=== PATIENT | female | born 2000 | race Two or more races ===

== ENCOUNTER 2020-04-30 19:40 | Emergency (ER) | payer OTHER ==
--- NOTE | 2020-04-30 20:16 | ER Document Report ---
ED Medical Screen (RME) - General Chief Complaint: Dizziness Stated Complaint: LIGHT HEADNESS/ABDOMINAL TENDERNESS Time Seen by Provider: 04/30/20 20:04 Notes: Patient is a G1, P0 27-week female who presents to the emergency department with a chief complaint of dizziness that started around 1830. She was eating at that time. Patient states that she feels normal now. Patient called the on-call [employer] nurse at [facility] and they referred her to the emergency department. Patient states that since she had the episode, she not felt the fetus move as much. Denies any abdominal cramping. Exam: Noticeably 27 weeks . I have greeted and performed a rapid initial assessment of this patient. A comprehensive ED assessment and evaluation of the patient, analysis of test results and completion of medical decision making process will be conducted by an additional ED providers. - Related Data Allergies/Adverse Reactions: No Known Allergies Allergy (Unverified 04/30/20 20:05) Home Medications: vitamin Past Medical History - Social History Chew tobacco use (# tins/day): No Frequency of alcohol use: None Drug Abuse: None Physical Exam - Vital signs Vitals: Temp Pulse Resp BP Pulse Ox 98.7 F 103 H 16 123/74 98 04/30/20 19:44 04/30/20 19:44 04/30/20 19:44 04/30/20 19:44 04/30/20 19:44 Course - Vital Signs Vital signs: Temp Pulse Resp BP Pulse Ox 98.7 F 103 H 16 123/74 98 04/30/20 19:59 04/30/20 19:44 04/30/20 19:44 04/30/20 19:44 04/30/20 19:44
[2020-04-30 21:01] LABS: ABSOLUTE LYMPHOCYTES (AUTO) 1.1 10^3/uL (0.5-4.7); ABSOLUTE MONOCYTES (AUTO) 0.6 10^3/uL (0.1-1.4); ABSOLUTE NEUT (AUTO) 6.3 10^3/uL (1.7-8.2); BASOPHILS % (AUTO) 0.4 % (0-2); EOSINOPHILS % (AUTO) 0.2 % (0-6); HEMATOCRIT 34.6 % (36.0-47.0); HEMOGLOBIN 12.5 g/dL (12.0-15.5); LYMPHOCYTES % (AUTO) 13.6 % (13-45); MEAN CORPUSCULAR HEMOGLOBIN 33.2 pg (27.0-33.4); MEAN CORPUSCULAR VOLUME 92 fl (80-97); MONOCYTES % (AUTO) 7.6 % (3-13); PLATELET COUNT 211 10^3/uL (150-450); RED BLOOD COUNT 3.76 10^6/uL (3.72-5.28); RED CELL DISTRIBUTION WIDTH 12.6 % (11.5-14.0); SEGMENTED NEUTROPHILS % (AUTO) 78.2 % (42-78); TOTAL CELLS COUNTED % (AUTO) 100 %; WHITE BLOOD COUNT 8.1 10^3/uL (4.0-10.5)
[2020-04-30 21:04] LABS: APPEARANCE,URINE CLEAR; BILIRUBIN,URINE NEGATIVE (NEGATIVE); COLOR,URINE YELLOW; GLUCOSE, URINE NEGATIVE (NEGATIVE); KETONES,URINE TRACE mg/dL (NEGATIVE); LEUKOCYTE ESTERASE,URINE NEGATIVE (NEGATIVE); NITRITE,URINE NEGATIVE (NEGATIVE); PROTEIN,URINE NEGATIVE (NEGATIVE); URINE SPECIFIC GRAVITY 1.011; UROBILINOGEN,URINE NEGATIVE mg/dL (<2.0)
[2020-04-30 21:08] LABS: ALBUMIN 3.7 g/dL (3.5-5.0); ALKALINE PHOSPHATASE 80 U/L (38-126); ANION GAP 8 (5-19); ASPARTATE AMINO TRANSFERASE 28 U/L (14-36); BILIRUBIN,TOTAL 0.4 mg/dL (0.2-1.3); BLOOD UREA NITROGEN 10 mg/dL (7-20); CALCIUM 9.1 mg/dL (8.4-10.2); CARBON DIOXIDE 24 mmol/L (22-30); CHLORIDE 102 mmol/L (98-107); GLUCOSE 91 mg/dL (75-110); POTASSIUM 3.6 mmol/L (3.6-5.0); TOTAL PROTEIN 6.7 g/dL (6.3-8.2)
--- NOTE | 2020-04-30 21:59 | RADIOLOGY REPORT (SQ) ---
EXAM DESCRIPTION: US FOLLOW UP COMPLETED DATE/TME: 04/30/2020 20:22 CLINICAL HISTORY: 19 years, Female, dizziness; decreased movement COMPARISON: None. TECHNIQUE: LIMITATIONS: None. FINDINGS: There is a live 27 week 3 day +/- 2 week IUP in vertex presentation. cardiac activity was measured at 158 bpm. movement was visualized during the examination. The placenta is fundal in location, with no evidence of abruption or previa. There is a normal amount of amniotic fluid. The amniotic fluid index is 15.3 cm. The estimated weight is 1055 g. The cervix measures 3.3 cm in length and is closed. IMPRESSION: Unremarkable IUP. copyright 2010 [employer]- All Rights Reserved
--- NOTE | 2020-05-01 00:55 | ER Document Report ---
ED General - General Chief Complaint: Dizziness Stated Complaint: LIGHT HEADNESS/ABDOMINAL TENDERNESS Time Seen by Provider: 04/30/20 20:04 Mode of Arrival: Ambulatory Information source: Patient Notes: Place notes Patient is a G1, P0 27-week female who presents to the emergency depart ment with a chief complaint of dizziness that started around 1830. She was eating at that time. Patient states that she feels normal now. Patient called the on-call [employer] nurse at [facility] and they referred her to the emergency department. Patient states that since she had the episode, she not felt the fetus move as much. Denies any abdominal cramping. my notes 19-year-old [place] female arrives with acute onset of dizziness and soreness in her stomach and felt like she could not breathe for around 4 minutes with some apprehension. This is never happened before but denied any hemoptysis or any chest pain or diarrhea constipation fever chills sore throat nuchal rigidity or trauma or anxiety attack. This is her first G1, P0 [place] Ultrasound revealed 27 weeks which is in concurrence with her last menstrual period. Ultrasound revealed IUP vertex presentation no previa closed cervix and normal fluid patient wants to go home. It is now 0 115 - Related Data Allergies/Adverse Reactions: No Known Allergies Allergy (Unverified 04/30/20 20:05) Home Medications: vitamin Past Medical History - General Information source: Patient - Social History Smoking Status: Never Smoker Cigarette use (# per day): No Chew tobacco use (# tins/day): No Smoking Education Provided: No Frequency of alcohol use: None Drug Abuse: None Lives with: Family Family History: Reviewed & Not Pertinent Patient has suicidal ideation: No Patient has homicidal ideation: No Review of Systems - Review of Systems Constitutional: No symptoms reported EENT: No symptoms reported Cardiovascular: See HPI, Dizziness Respiratory: No symptoms reported Gastrointestinal: No symptoms reported Genitourinary: No symptoms reported Female Genitourinary: No symptoms reported Musculoskeletal: No symptoms reported Skin: No symptoms reported Hematologic/Lymphatic: No symptoms reported Neurological/Psychological: No symptoms reported Physical Exam - Vital signs Vitals: Temp Pulse Resp BP Pulse Ox 98.7 F 103 H 16 123/74 98 04/30/20 19:44 04/30/20 19:44 04/30/20 19:44 04/30/20 19:44 04/30/20 19:44 Interpretation: Tachycardic - General General appearance: Appears well - HEENT Head: Normocephalic, Atraumatic Eyes: Normal Pupils: PERRL - Respiratory Respiratory status: No respiratory distress Chest status: Nontender Breath sounds: Normal Chest palpation: Normal - Cardiovascular Rhythm: Regular - Abdominal Inspection: Gravid female Distension: Distended Bowel sounds: Normal Tenderness: Nontender Organomegaly: No organomegaly - Rectal Stool: Other - deferred - Genitourinary Speculum exam: Other - deferred - Back Back: Normal - Extremities General upper extremity: Normal inspection, Nontender, Normal color, Normal ROM, Normal temperature General lower extremity: Normal inspection, Nontender, Normal color, Normal ROM, Normal temperature, Normal weight bearing. No: Damien's sign - Neurological Neuro grossly intact: Yes Cognition: Normal Orientation: AAOx4 Madi Coma Scale Eye Opening: Spontaneous Madi Coma Scale Verbal: Oriented Madi Coma Scale Motor: Obeys Commands Orgas Coma Scale Total: 15 Speech: Normal Motor strength normal: LUE, RUE, LLE, RLE Sensory: Normal - Psychological Associated symptoms: Normal affect - Skin Skin Temperature: Warm Skin Moisture: Dry Course - Vital Signs Vital signs: Temp Pulse Resp BP Pulse Ox 98.6 F 81 20 107/71 98 05/01/20 01:35 05/01/20 01:35 05/01/20 01:35 05/01/20 01:35 05/01/20 01:35 - Laboratory Result Diagrams: 04/30/20 20:24 04/30/20 20:24 Laboratory results interpreted by me: 04/30/20 04/30/20 04/30/20 20:17 20:24 20:24 Hct 34.6 L Seg Neutrophils % 78.2 H Sodium 133.8 L Beta HCG, Quant 00730.00 H Urine Ketones TRACE H Urine Ascorbic Acid 40 H Critical Care Note - Critical Care Note Total time excluding time spent on procedures (mins): 60 Comments: I advised patient of her ultrasound reports and she now feels much improved and would like to go home. She requests no further work-up. Discharge - Discharge Clinical Impression: Qualifiers: Weeks of gestation: 27 weeks Qualified Code(s): Z3A.27 - 27 weeks gestation of Condition: Good Disposition: HOME, SELF-CARE Additional Instructions: Follow-up with OB doctor this week return to ER as needed return if symptoms of shortness of breath or tachycardia return. Also return if you have any vaginal discharge or leakage as an "water breakage" Forms: Return to Work
[2020-05-01 01:37] VITALS: BP 107/71
== END 2020-05-01 02:47 | disposition home or self-care (01) ==
LOC: ER 19:40
DX: O26.92 Pregnancy related conditions, unspecified, second trimester (principal); R42 Dizziness and giddiness; R10.819 Abdominal tenderness, unspecified site; R00.0 Tachycardia, unspecified; Z3A.27 27 weeks gestation of pregnancy
CPT/HCPCS: 36415; 76805; 80053; 81001; 83690; 84702; 85025; 99285